=== PATIENT | female | born 1980 | race Caucasian/White ===

== ENCOUNTER → 2021-09-05 15:24 | Outpatient (BNVA) | payer BC, SELFPAY | PROVIDERS: Family Provider Family Medicine; PCP Family Medicine; Referring Provider Family Medicine; Visit Provider Orthopaedic Surgery | DX: M25.552 Pain in left hip (principal) | CPT/HCPCS: 73502 ==

== ENCOUNTER 2021-10-30 13:15 | Outpatient (CLI) | payer BC, SELFPAY ==
--- NOTE | 2021-10-30 13:45 | MR_ITS ---
WS: [id number] MRI LEFT HIP NONCONTRAST TECHNIQUE: Axial T1, axial T2 fat sat, coronal T1, coronal STIR, sagittal T2 fat sat, sagittal T1, an d sagittal T2 fat sat, of both hips. CLINICAL INFORMATION: R22.42 - Localized swelling, mass and lump, left lower limb COMPARISON: MRI pelvis 1 17,018 FINDINGS: Susceptibility artifact from prior postoperative changes resection of the calcified LEFT anterior fem oral mass. No evidence of residual or recurrent lesion. Normal bone marrow signal in the LEFT femoral head and neck. RIGHT femoral head and neck appear normal. Normal bone marrow signal in the ileum and visualized sacrum. Normal bone marrow signal in the LEFT acetabulum and visualized LEFT pubic rami. Large heterogeneous ventral uterine fibroid measuring 4.9 x 6.1 x 3.7 CM is new since 2018. This can be further evaluated with ultrasound. Physiologic ovarian follicles bilaterally. MR/MR hip LT wo con* [id number] IMPRESSION: 1. Previously described LEFT proximal femoral mass has been resected since 201 8. No evidence of recurrent disease. Postoperative changes in this area with mai sceptibility artifact. 2. Normal bone marrow signal in the LEFT femoral head and neck. Normal visuali zed LEFT proximal femur. 3. Normal bone marrow signal in the pelvis and sacrum. Visualized RIGHT femur is normal. 4. Large ventral fundal fibroid measuring 4.9 x 6.1 x 3.7 CM. This is new [facility] e 2017. This can be further evaluated with ultrasound. 5. Incidental bilateral ovarian follicles.
== END 2021-10-30 13:16 | disposition home or self-care (01) ==
LOC: RAD 13:15
PROVIDERS: Family Provider Family Medicine; PCP Family Medicine; Visit Provider Orthopaedic Surgery
DX: R22.42 Localized swelling, mass and lump, left lower limb (principal); D25.9 Leiomyoma of uterus, unspecified
CPT/HCPCS: 73721

== ENCOUNTER → 2021-12-12 14:58 | Outpatient (BNVA) | payer BC, SELFPAY | PROVIDERS: Family Provider Family Medicine; PCP Family Medicine; Visit Provider Orthopaedic Surgery | DX: R20.0 Anesthesia of skin (principal); R20.2 Paresthesia of skin | CPT/HCPCS: 72050 ==

== ENCOUNTER 2024-07-18 11:26 | Emergency (ER) | payer BC, SELFPAY ==
[2024-07-18 11:49] VITALS: BP 135/92; PULSE 89; RESP 14; TEMP 37.2; O2SAT 98
--- NOTE | 2024-07-18 11:52 | CTR_ITS ---
PROCEDURE INFORMATION: Exam: CT Abdomen And Pelvis With Contrast Exam date and time: 07/18/2024 12:37 PM Age: 44 years old Clinical indication: Abdominal pain; Generalized; Prior surgery; Surgery date: 6+ months; Surgery type: Gb, appy tubal; Additional info: Abd pain TECHNIQUE: Imaging protocol: Computed tomography of the abdomen and pelvis with contrast. Radiation optimization: All CT scans at this facility use at least one of these dose optimization techniques: automated exposure control; mA and/or kV adjustment per patient size (includes targeted exams where dose is matched to clinical indication); or iterative reconstruction. Contrast material: OMNI 350; Contrast volume: 100 ml; Contrast route: INTRAVENOUS (IV); COMPARISON: CR XR hip LT 2-3V wo/w pel* [id number] 09/05/2021 3:26 PM RADIATION DOSE METRICS: Total DLP (mGy-cm): 797.9 FINDINGS: Liver: Normal. No mass. Gallbladder and biliary ducts: Cholecystectomy. Nondilated biliary system. Pancreas: Normal. No ductal dilation. Spleen: Normal. No splenomegaly. Adrenal glands: Normal. No mass. Kidneys and ureters: A small subcortical cyst in the anterior lower pole of the right kidney measures 1.8 cm. No imaging follow-up is recommended. Negative for stones. Negative for hydronephrosis. Stomach and bowel: Inflammatory changes focally in the proximal sigmoid colon. Wall thickening. Pericolonic stranding. Prominent diverticulum best seen axial series 3, image 48. Negative for bowel obstruction. Negative for pneumatosis intestinalis. Appendix: No evidence of appendicitis. Intraperitoneal space: Unremarkable. No free air. No significant fluid collection. Vasculature: Unremarkable. No abdominal aortic aneurysm. Lymph nodes: Unremarkable. No enlarged lymph nodes. Urinary bladder: Unremarkable as visualized. Reproductive: Large circumscribed mildly heterogeneous but predominantly enhancing intramural mass of the anterior uterine body measures 8.6 cm x 8.7 cm x 7.1 cm. Negative for endometrial thickening. The enlarged uterus. Unremarkable adnexa. Bones/joints: Unremarkable. No acute fracture. Soft tissues: Unremarkable. CT/CT abdomen pelvis w con* [id number] IMPRESSION: 1. Positive for acute diverticulitis changes in the proximal sigmoid colon. 2. Large circumscribed intramural uterine mass. The appearance is nonspecific but fibroid favored.
--- NOTE | 2024-07-18 12:05 | W.ED.ABDPA2 ---
HPI - Abdominal Pain General: Chief Complaint: Abdominal Pain Stated Complaint: abdominal pain Time Seen by Provider: 07/18/24 11:49 Source: patient Mode of arrival: ambulatory Limitations: no limitations History of Present Illness: 44-year-old female who states that she has been having diffuse abdominal pain for the last 3 days. States has been sharp in nature has had some nausea she denies any vomiting or diarrhea. States the pain is worse with movement rates the pain an 8 out of 10 currently she has had an appendectomy and a cholecystectomy. Denies any fevers. Associated Symptoms: Denies chills, diarrhea, fever(s), nausea and vomiting Related Data Home Medications ?Medication ?Instructions ?Recorded ?Confirmed lisinopril 10 1 tab PO DAILY 09/05/21 07/18/24 mg-hydrochlorothiazide 12.5 mg tablet trazodone 50 mg tablet 50 mg PO DAILY 10/26/21 07/18/24 citalopram 20 mg tablet 20 mg PO DAILY 07/18/24 07/18/24 Previous Rx's ?Medication ?Instructions ?Recorded ciprofloxacin HCl 500 mg tablet 500 mg PO BID #14 tabs 07/18/24 (Cipro) hydrocodone 5 mg-acetaminophen 325 1 tab PO Q6H PRN pain #14 tabs 07/18/24 mg tablet metronidazole 500 mg tablet 500 mg PO Q8H 7 days #21 tabs 07/18/24 ondansetron 4 mg disintegrating 4 mg PO Q6H PRN nausea and 07/18/24 tablet vomiting #14 tabs Allergies Allergy/AdvReac Type Severity Reaction Status Date / Time No Known Allergies Allergy Verified 12/12/21 14:45 Review of Systems Const: Denies: fever(s), chills, body aches or change in appetite ENMT: Denies: throat pain or dental pain Card: Denies: chest pain Resp: Denies: dyspnea GI: Reports: abdominal pain; Denies: nausea, vomiting or diarrhea Musc: Denies: neck pain or back pain Skin/Breast: Denies: rash Neuro: Denies: headache(s) PFSH ED PFSH: Social History Smoking and tobacco/nicotine status: never used tobacco/nicotine Alcohol intake: never Substance/Drug Use: never Physical Exam Const: COMMON NORMALS: no acute distress, patient oriented x3 and healthy appearing HENMT: COMMON NORMALS: normocephalic and atraumatic HEAD & SCALP: normocephalic and atraumatic Eye: COMMON NORMALS: conjunctivae normal CONJUNCTIVA: Yes conjunctivae normal Neck/C-Spine: COMMON NORMALS: full ROM and supple Chest: COMMONS NORMALS: normal inspection of the chest Resp: COMMON NORMALS: normal respiratory effort Cardio: COMMON NORMALS: regular rate, regular rhythm and No murmurs present (Cardio) RATE: regular rate RHYTHM: regular rhythm GI: COMMON NORMALS: Normal to inspection, nondistended, normoactive bowel sounds present, Soft to palpation and no masses PALPATION: Yes Soft to palpation OTHER: diffuse tenderness Extremity: COMMON NORMALS: normal to inspection and full ROM Neuro: COMMON NORMALS: patient oriented x3, moves all extremities and no focal motor deficits Psych: COMMON NORMALS: mental status grossly normal, Normal thought process present and cooperative THOUGHT PROCESS: Normal thought process present Skin: COMMON NORMALS: no rashes or lesions noted and no wounds GENERAL SKIN EXAM: no rashes or lesions noted Course Vital Signs: Vital signs: Vital Signs Temperature 98.9 F 07/18/24 11:49 Pulse Rate 89 07/18/24 11:49 Respiratory Rate 14 07/18/24 11:49 Blood Pressure 135/92 07/18/24 11:49 Pulse Oximetry 98 07/18/24 11:49 MDM - Abdominal Pain Medical Decision Making Patient presents here with abdominal pain she is found have diverticulitis her white count here is 13 she states her pain is much improved I did offer her admission she states she feels improved would like to try oral antibiotics at home but offered that it option as well I feel that she is safe to try oral antibiotics she has no signs of her white count was normal afebrile. Did inform her if her pain worsens or she starts to have a fever she is to return immediately she understands agrees to plan. Medical Records I reviewed the patient's medical records. Lab Data I reviewed the patient's lab results. 07/18/24 11:58 07/18/24 11:58 Labs/Radiology: Radiology Impressions Abdomen/Pelvis CT 07/18/24 11:52 IMPRESSION: 1. Positive for acute diverticulitis changes in the proximal sigmoid colon. 2. Large circumscribed intramural uterine mass. The appearance is nonspecific but fibroid favored. Laboratory Results WBC 13.65 10^3/uL (3.29-11.43) H 07/18/24 11:58 RBC 4.59 10^6/uL (3.85-5.65) 07/18/24 11:58 Hgb 14.20 g/dL (11.27-16.99) 07/18/24 11:58 Hct 43.1 % (36-47) 07/18/24 11:58 MCV 93.9 fl (85-98) 07/18/24 11:58 MCH 30.9 pg (27-33) 07/18/24 11:58 MCHC 32.9 g/dL (30-55) 07/18/24 11:58 RDW 12.8 % (12.1-15.1) 07/18/24 11:58 Plt Count 243 10^3/cmm (157-399) 07/18/24 11:58 MPV 12.1 fL (7.4-10.4) H 07/18/24 11:58 Neut % (Auto) 75.8 % 07/18/24 11:58 Lymph % (Auto) 12.7 % 07/18/24 11:58 [place] % (Auto) 10.0 % 07/18/24 11:58 Eos % (Auto) 0.3 % 07/18/24 11:58 Baso % (Auto) 0.4 % 07/18/24 11:58 Neut # (Auto) 10.35 10^3/uL (1.8-7.7) H 07/18/24 11:58 Lymph # (Auto) 1.7 10^3/uL (0.8-4.8) 07/18/24 11:58 [place] # (Auto) 1.4 10^3/uL (0.2-0.9) H 07/18/24 11:58 Eos # (Auto) 0.0 10^3/uL (0.0-0.8) 07/18/24 11:58 Baso # (Auto) 0.1 10^3/uL (0.0-0.1) 07/18/24 11:58 Nucleated RBC % (auto) 0 % 07/18/24 11:58 Nucleated RBCs # 0.0 /100WBC 07/18/24 11:58 Sodium 137 mmol/L (136-145) 07/18/24 11:58 Potassium 3.7 mmol/L (3.5-5.1) 07/18/24 11:58 Chloride 101 mmol/L (98-107) 07/18/24 11:58 Carbon Dioxide 25 mmol/L (22-29) 07/18/24 11:58 Anion Gap 14.7 (5-19) 07/18/24 11:58 BUN 9 mg/dL (6-20) 07/18/24 11:58 Creatinine 0.8 mg/dL (0.5-0.9) 07/18/24 11:58 GFR Calculation 77.6 mL/min (90-130) L 07/18/24 11:58 Glucose 84 mg/dL (65-115) 07/18/24 11:58 Calculated Osmolality 282 mOsm/kg (285-295) L 07/18/24 11:58 Calcium 8.7 mg/dL (8.5-10.5) 07/18/24 11:58 Total Bilirubin 0.8 mg/dL (0.15-1.2) 07/18/24 11:58 AST 19 U/L (0-32) 07/18/24 11:58 ALT 26 U/L (0-33) 07/18/24 11:58 Alkaline Phosphatase 49 U/L (35-105) 07/18/24 11:58 Total Protein 7.2 g/dL (6.6-8.7) 07/18/24 11:58 Albumin 4.0 g/dL (3.5-5.2) 07/18/24 11:58 Globulin 3.2 g/dL (1.3-4.6) 07/18/24 11:58 Lipase 23 U/L (13-60) 07/18/24 11:58 HCG, Qual Negative (Negative) 07/18/24 11:58 Urine Color [place] (Yellow) A 07/18/24 11:58 Urine Appearance Clear (CLEAR) 07/18/24 11:58 Urine pH 5.5 (5-7) 07/18/24 11:58 Ur Specific [place] 1.008 (1.005-1.030) 07/18/24 11:58 Urine Protein Negative (Negative) 07/18/24 11:58 Urine Glucose (UA) Negative (Normal) 07/18/24 11:58 Urine Ketones Negative (Negative) 07/18/24 11:58 Urine Blood Negative (Negative) 07/18/24 11:58 Urine Nitrate Negative (Negative) 07/18/24 11:58 Urine Bilirubin Negative (Negative) 07/18/24 11:58 Urine Urobilinogen 0.2 mg/dL (Negative) 07/18/24 11:58 Ur Leukocyte Esterase Negative (Negative) 07/18/24 11:58 Urine RBC 0-2 /hpf (0-2) 07/18/24 11:58 Urine WBC 0-5 /hpf (0-5) 07/18/24 11:58 Ur Squamous Epith Cells 0-5 /hpf (0-5) 07/18/24 11:58 Amorphous Sediment Not Reportable 07/18/24 11:58 Urine Bacteria None seen /hpf (NONE) 07/18/24 11:58 Hyaline Casts 0.40 /lpf 07/18/24 11:58 All radiology interpretation(s) finalized by discharge Discharge Plan Discharge Patient Disposition: Home Clinical Impression: Diverticulitis Condition: Stable Prescriptions: New hydrocodone-acetaminophen 5-325 mg tablet 1 tab PO Q6H PRN (Reason: pain) Qty: 14 0RF metronidazole 500 mg tablet 500 mg PO Q8H 7 Days Qty: 21 0RF ciprofloxacin HCl [Cipro] 500 mg tablet 500 mg PO BID Qty: 14 0RF ondansetron 4 mg tablet,disintegrating 4 mg PO Q6H PRN (Reason: nausea and vomiting) Qty: 14 0RF No Action lisinopril-hydrochlorothiazide 10-12.5 mg tablet 1 tab PO DAILY trazodone 50 mg tablet 50 mg PO DAILY citalopram 20 mg tablet 20 mg PO DAILY Discharge Orders: Discharge ED (Routine); Ordered 07/18/24 Ordered By: Reynaldo Driver Referrals: Davon Solano MD [Primary Care Provider] - 4-7 days Discharge Diet: Advance as tolerated Discharge Activity: Resume usual activity Patient Instructions: Diverticulitis (ED), Opioid Safety Print Language: Citizen Of [place] Coding Level of Care Code ED News Copy Editor for Anam Downey
[2024-07-18 12:09] LABS: Basophils # 0.1 10^3/uL (0.0-0.1); Basophils % 0.4 %; Eosinophils % 0.3 %; Hematocrit 43.1 % (36-47); Lymphocytes # 1.7 10^3/uL (0.8-4.8); Lymphocytes % 12.7 %; Mean Corpuscular HGB Conc 32.9 g/dL (30-55); Mean Corpuscular Hemoglobin 30.9 pg (27-33); Mean Corpuscular Volume 93.9 fl (85-98); Mean Platelet Volume 12.1 fL (7.4-10.4); Monocytes # 1.4 10^3/uL (0.2-0.9); Neutrophils # 10.35 10^3/uL (1.8-7.7); Neutrophils % 75.8 %; Nucleated Red Blood Cells % 0 %; Platelet Count 243 10^3/cmm (157-399); Red Blood Count 4.59 10^6/uL (3.85-5.65); Red Cell Distribution Width 12.8 % (12.1-15.1); White Blood Count 13.65 10^3/uL (3.29-11.43)
[2024-07-18] MEDS: ondansetron 2 mg/ML SDV 2 mL 4 MG IVP (12:09)
[2024-07-18] MEDS: morphine 4 mg/mL SDV 1 mL IVP (12:09)
[2024-07-18 12:22] VITALS: PULSE 90; O2SAT 98
[2024-07-18 12:22] LABS: Bilirubin Urine Negative (Negative); Blood Urine Negative (Negative); Glucose Urine UA Negative (Normal); Ketones Urine Negative (Negative); Leukocyte Esterase Urine Negative (Negative); Nitrate Urine Negative (Negative); Protein Urine Negative (Negative); Specific Gravity, Urine 1.008 (1.005-1.030); Urine Appearance Clear (CLEAR); Urobilinogen Urine 0.2 mg/dL (Negative); pH Urine 5.5 (5-7)
[2024-07-18 12:24] LABS: HCG Qualitative Urine. Negative (Negative)
[2024-07-18 12:26] LABS: Alanine Aminotransferase 26 U/L (0-33); Alkaline Phosphatase 49 U/L (35-105); Blood Urea Nitrogen 9 mg/dL (6-20); Calcium 8.7 mg/dL (8.5-10.5); Carbon Dioxide 25 mmol/L (22-29); Chloride 101 mmol/L (98-107); Globulin 3.2 g/dL (1.3-4.6); Glomerular Filtration Rate 77.6 mL/min (90-130); Glucose 84 mg/dL (65-115); Lipase 23 U/L (13-60); Osmolality Calculated 282 mOsm/kg (285-295); Sodium 137 mmol/L (136-145); Total Bilirubin 0.8 mg/dL (0.15-1.2); Total Protein 7.2 g/dL (6.6-8.7)
[2024-07-18 12:27] LABS: Add Urine Microscopic? YES; Bacteria Urine None Seen /hpf; RBC Urine 0-2 /hpf (0-2); Squamous Epithelial Cell Urine 0-5 /hpf (0-5); WBC Urine 0-5 /hpf (0-5)
[2024-07-18 12:29] LABS: Anion Gap 14.7 (5-19); Aspartate Amino Transferase 19 U/L (0-32); Potassium 3.7 mmol/L (3.5-5.1)
[2024-07-18 12:30] LABS: Urine Color Orange (Yellow)
[2024-07-18] MEDS: iohexol 350 mg/mL 500 mL Btl (per mL) IV (12:41)
[2024-07-18 13:36] VITALS: BP 130/76; PULSE 90; O2SAT 98
== END 2024-07-18 13:40 | disposition home or self-care (01) ==
PROVIDERS: Emergency Provider Emergency Medicine; PCP Family Medicine
DX: K57.92 Diverticulitis of intestine, part unspecified, without perforation or abscess without bleeding (principal)
CPT/HCPCS: 74177; 80053; 81001; 81025; 83690; 85025; 96374; 96375; 99285; J2270; J2405

== ENCOUNTER 2024-07-18 22:32 | Emergency (ER) | payer BC, SELFPAY ==
[2024-07-18 22:41] VITALS: BP 112/75; PULSE 93; RESP 18; TEMP 37; O2SAT 93
[2024-07-19 00:02] LABS: Bilirubin Urine Negative (Negative); Blood Urine 2+ (Negative); Glucose Urine UA Negative (Normal); Ketones Urine 2+ (Negative); Leukocyte Esterase Urine Negative (Negative); Nitrate Urine Negative (Negative); Protein Urine Trace (Negative); Urine Appearance Clear (CLEAR); Urine Color Yellow (Yellow)
[2024-07-19 00:07] LABS: Add Urine Microscopic? YES; Bacteria Urine 1+ /hpf; Hyaline Casts Urine 1.65 /lpf; WBC Urine 0-5 /hpf (0-5)
[2024-07-19 00:12] LABS: Specific Gravity, Urine 1.037 (1.005-1.030)
--- NOTE | 2024-07-19 00:27 | W.ED.ABDPA2 ---
HPI - Abdominal Pain General: Chief Complaint: Abdominal Pain Stated Complaint: divuticullitis worse Time Seen by Provider: 07/18/24 23:29 History of Present Illness: Patient presents for follow-up evaluation of recently diagnosed diverticulitis with new onset fever and persistent pain. Reports developing fever during the night, which was not present during previous visit. Pain is described as diffuse abdominal discomfort that significantly worsens with movement, rated as 8/10 when changing positions. Patient was instructed during previous visit to return if pain worsened or fever developed. Currently on oral Ciprofloxacin and Metronidazole (Flagyl) antibiotic therapy. Reports significant nausea with pain medication (hydrocodone). Pain is not adequately controlled with current oral pain medications, as patient continues to experience severe pain even after taking prescribed medications. Related Data Home Medications ?Medication ?Instructions ?Recorded ?Confirmed lisinopril 10 1 tab PO DAILY 09/05/21 07/18/24 mg-hydrochlorothiazide 12.5 mg tablet trazodone 50 mg tablet 50 mg PO DAILY 10/26/21 07/18/24 citalopram 20 mg tablet 20 mg PO DAILY 07/18/24 07/18/24 Previous Rx's ?Medication ?Instructions ?Recorded ciprofloxacin HCl 500 mg tablet 500 mg PO BID #14 tabs 07/18/24 (Cipro) hydrocodone 5 mg-acetaminophen 325 1 tab PO Q6H PRN pain #14 tabs 07/18/24 mg tablet metronidazole 500 mg tablet 500 mg PO Q8H 7 days #21 tabs 07/18/24 ondansetron 4 mg disintegrating 4 mg PO Q6H PRN nausea and 07/18/24 tablet vomiting #14 tabs Allergies Allergy/AdvReac Type Severity Reaction Status Date / Time No Known Allergies Allergy Verified 07/18/24 22:47 [facility] ED PFSH: Social History Smoking and tobacco/nicotine status: never used tobacco/nicotine Alcohol intake: never Substance/Drug Use: never Physical Exam Const: COMMON NORMALS: no acute distress, patient oriented x3, alert and well nourished HENMT: COMMON NORMALS: normocephalic HEAD & SCALP: normocephalic Eye: COMMON NORMALS: Equal, round and reactive pupils present, EOMs intact bilaterally and conjunctivae normal CONJUNCTIVA: Yes conjunctivae normal PUPIL: Yes Equal, round and reactive pupils present Neck/C-Spine: COMMON NORMALS: full ROM, no lymphadenopathy, supple, no meningeal signs, no JVD and Thyroid normal THYROID: Thyroid normal Chest: COMMONS NORMALS: normal inspection of the chest and normal palpation of entire chest wall Resp: COMMON NORMALS: normal respiratory effort, No retractions, No use of accessory muscles, clear to auscultation bilaterally and percussion normal AUSCULTATION: clear to auscultation bilaterally PERCUSSION: percussion normal Cardio: COMMON NORMALS: no JVD GI: OTHER: Pain to palpation in lower abdomen Extremity: COMMON NORMALS: normal to inspection, full ROM, capillary refill normal, no joint enlargement, no clubbing, cyanosis or edema, no calf tenderness and no pedal edema Neuro: COMMON NORMALS: patient oriented x3 SENSORIUM/ORIENTATION: Yes alert MENINGEAL SIGNS: Yes no meningeal signs Skin: COMMON NORMALS: no rashes or lesions noted, turgor normal and no jaundice GENERAL SKIN EXAM: no rashes or lesions noted and turgor normal Course Vital Signs: Vital signs: Vital Signs Temperature 98.6 F 07/18/24 22:41 Pulse Rate 93 07/18/24 22:41 Respiratory Rate 18 07/18/24 22:41 Blood Pressure 112/75 07/18/24 22:41 Pulse Oximetry 93 07/18/24 22:41 Oxygen Delivery Me thod Room Air 07/18/24 22:41 MDM - Abdominal Pain Medical Decision Making 1. Acute Diverticulitis: - Current presentation consistent with expected course of illness within first 24-48 hours - No clear signs of perforation or other acute complications - Continue current antibiotic regimen with Ciprofloxacin and Metronidazole - May add ibuprofen for additional pain control as no contraindications identified - Clear liquid diet recommended for next few days - Maintain adequate hydration with electrolyte-containing fluids 2. Pain Management: - Administered parenteral pain medication in ED for acute relief - Continue oral hydrocodone as prescribed - Added recommendation for ibuprofen as adjunct therapy 3. Follow-up Plan: - Schedule follow-up with PCP (Dr. Solano) - Colonoscopy recommended given young age of diverticulitis presentation - Return precautions reviewed: persistent fever beyond 48 hours, significant worsening of pain, inability to tolerate oral medications - Activity as tolerated, though limited by pain Differential Diagnosis Likely abdominal pain and diverticulitis (I do not think patient has perforation based on presentation) Lab Data Labs/Radiology: Laboratory Results Urine Color Yellow (Yellow) 07/18/24 23:40 Urine Appearance Clear (CLEAR) 07/18/24 23:40 Urine pH 5.0 (5-7) 07/18/24 23:40 Ur Specific [place] 1.037 (1.005-1.030) H 07/18/24 23:40 Urine Protein Trace (Negative) A 07/18/24 23:40 Urine Glucose (UA) Negative (Normal) 07/18/24 23:40 Urine Ketones 2+ (Negative) H 07/18/24 23:40 Urine Blood 2+ (Negative) A 07/18/24 23:40 Urine Nitrate Negative (Negative) 07/18/24 23:40 Urine Bilirubin Negative (Negative) 07/18/24 23:40 Urine Urobilinogen 1.0 mg/dL (Negative) 07/18/24 23:40 Ur Leukocyte Esterase Negative (Negative) 07/18/24 23:40 Urine RBC 3-5 /hpf (0-2) 07/18/24 23:40 Urine WBC 0-5 /hpf (0-5) 07/18/24 23:40 Ur Squamous Epith Cells 6-10 /hpf (0-5) 07/18/24 23:40 Amorphous Sediment Not Reportable 07/18/24 23:40 Urine Bacteria 1+ /hpf (NONE) H 07/18/24 23:40 Hyaline Casts 1.65 /lpf 07/18/24 23:40 All radiology interpretation(s) finalized by discharge Discharge Plan Discharge Patient Disposition: Home Clinical Impression: Diverticulitis Condition: Stable Prescriptions: No Action lisinopril-hydrochlorothiazide 10-12.5 mg tablet 1 tab PO DAILY trazodone 50 mg tablet 50 mg PO DAILY citalopram 20 mg tablet 20 mg PO DAILY hydrocodone-acetaminophen 5-325 mg tablet 1 tab PO Q6H PRN (Reason: pain) Qty: 14 0RF metronidazole 500 mg tablet 500 mg PO Q8H 7 Days Qty: 21 0RF ciprofloxacin HCl [Cipro] 500 mg tablet 500 mg PO BID Qty: 14 0RF ondansetron 4 mg tablet,disintegrating 4 mg PO Q6H PRN (Reason: nausea and vomiting) Qty: 14 0RF Discharge Orders: Discharge ED (Routine); Ordered 07/19/24 Ordered By: Bruce Hoffman Referrals: Davon Solano MD [Primary Care Provider] - Discharge Diet: Full LIquid Discharge Activity: Limit activity as instructed Patient Instructions: Opioid Safety, Pain Management Activity Restrictions/Additional Instructions: 1. Take Rx as directed +/- Ibuprofen 2. Follow up with PCP on Saturday for recheck 3. Return for new / worsening symptoms as discussed Print Language: [place] Coding Level of Care Code ED Inventory Planner for Anam Downey
[2024-07-19 00:29] VITALS: BP 163/59; PULSE 71; RESP 16; O2SAT 95
[2024-07-19 00:30] VITALS: BP 106/68; PULSE 76; RESP 20; O2SAT 95
[2024-07-19] MEDS: HYDROmorphone 0.5 MG/0.5 ML INJ 1 MG (00:34)
[2024-07-19 01:08] VITALS: BP 115/75; PULSE 80; RESP 16; O2SAT 94
== END 2024-07-19 01:09 | disposition home or self-care (01) ==
PROVIDERS: Emergency Provider Family Medicine; PCP Family Medicine
DX: K57.92 Diverticulitis of intestine, part unspecified, without perforation or abscess without bleeding (principal)
CPT/HCPCS: 81001; 99283; J1171

== ENCOUNTER 2024-11-10 09:52 | Day surgery (SDC) | payer BC, SELFPAY ==
[2024-11-10] VITALS (10 sets, daily range): BP systolic 84–133; BP diastolic 43–93; PULSE 60–79; RESP 10–18; TEMP 36.3–37.1; O2SAT 93–100; BMI 33.6
--- NOTE | 2024-11-10 10:08 | W.PM.OPSUD ---
Surgery/Procedure H&P Update DATE OF PROCEDURE: November 10, 2024 DATE H&P PERFORMED: 10/21/24 H&P UPDATE INFORMATION: I have reviewed H&P completed within last 30 days, I have examined patient prior to procedure and No changes to prior documentation PREOP DIAGNOSIS: abnormal uterine bleeding PLANNED PROCEDURE: Operation Date: 11/10/24 10:40 Proposed Procedures p Hysteroscopy w/ Endometrial Sampling [id number], N93.9(Not Applicable) - Huan Mejia MD s POSSIBLE Endometrial Poylpectomy(Not Applicable) - Huan Mejia MD
[2024-11-10 10:20] LABS: OR HCG Qualitative Urine Negative (Negative)
--- NOTE | 2024-11-10 10:45 | ANES.PREANE2 ---
Pre-Anesthetic Assessment Height/Weight: Height 1.6 m Weight 86.183 kg Temp Pulse Resp BP Pulse Ox O2 Del Method 98.8 F 73 18 133/93 95 Room Air 11/10/24 10:12 11/10/24 10:12 11/10/24 10:12 11/10/24 10:12 11/10/24 10:12 11/10/24 10:12 Preop Diagnosis: abnormal uterine bleeding Operation Date: 11/10/24 10:40 Proposed Procedures p Hysteroscopy w/ Endometrial Sampling [id number], N93.9(Not Applicable) - Huan Mejia MD s POSSIBLE Endometrial Poylpectomy(Not Applicable) - Huan Mejia MD Familial anesthetic complications: None Was Beta Luanne taken within 24 hours: N/A Was Clonidine taken within 24 hours: N/A Last intake: Intake Last Liquid Date 11/09/24 Last Liquid Time 10:30 Last Solid Date 11/09/24 Last Solid Time 20:30 Social No alcohol and No tobacco Exam alert, oriented x 3, clear to auscultation bilaterally and regular rate & rhythm Airway Mallampati: Class II Dentition: full CV/HEM Hypertension Metabolic Morbid Obesity Anesthetic Plan ASA status: 2 Anesthesia: General Risk of > 500 ml blood loss (7ml/kg in children): No Medications/Allergies Home Medications ?Medication ?Instructions ?Recorded ?Confirmed ?Last Taken ?Type lisinopril 10 1 tab PO DAILY 09/05/21 11/10/24 11/09/24 History mg-hydrochlorothiazide 12.5 mg tablet trazodone 50 mg tablet 50 mg PO DAILY 10/26/21 11/10/24 11/09/24 History ciprofloxacin HCl 500 mg tablet 500 mg PO BID #14 tabs 07/18/24 11/10/24 11/09/24 Rx (Cipro) citalopram 20 mg tablet (Celexa) 20 mg PO DAILY 07/18/24 11/10/24 11/09/24 History Allergies Allergy/AdvReac Type Severity Reaction Status Date / Time No Known Allergies Allergy Verified 11/10/24 10:07 Current Medications Generic Name Dose Route Start Last Admin Trade Name Freq PRN Reason Stop Dose Admin Sodium Chloride 1,000 mls @ 30 mls/hr 11/10/24 10:00 11/10/24 10:30 Sodium Chloride 0.9% IV 11/11/24 09:59 30 mls/hr .Q24H BROOKS Administration PFSH Anesthesia Family History Father Heart disease Hypertension Hyperlipidemia Diabetes Stroke Mother Heart disease Hypertension Diabetes Grandmother Breast cancer Grandfather Heart disease Diabetes Social History Smoking and tobacco/nicotine status: never used tobacco/nicotine Alcohol intake: never Substance/Drug Use: never
--- NOTE | 2024-11-10 11:25 | P.OP_ITS ---
Operative Report Date of procedure: November 10, 2024 Pre-op diagnosis: abnormal uterine bleeding Post-op diagnosis: same Post-op findings: Uterus sounded to 14 cm normal endometrial cavity No polyps / fibroids small amount of endometrial tissue Procedure done: hysteroscopy Curettage of uterus Specimens removed/disposition: endometrial curettings, sent to pathology Surgeon: Huan Mejia MD Anesthesia: MAC Estimated blood loss (mL): 0 Complications: none Findings: Uterus sounded to 14 cm normal endometrial cavity No polyps / fibroids small amount of endometrial tissue Condition: stable Disposition: PACU Brief History: 44 y.o. with abnormal uterine bleeding Procedure: Informed consent signed. Patient was taken to the operating room. Anesthesia was induced. Patient was placed in dorsolithotomy position, prepped and draped for hysteroscopy. A bivalve speculum was placed in the vagina. The anterior lip of the cervix was grasped with a sharp-toothed tenaculum. The cervix was serially dilated with Hegar dilators. . A hysteroscope was placed into the endometrial cavity. The endometrial cavity was seen to be normal. There were no polyps or fibroids. T here was a small amount of endometrial tissue. The hysteroscope was then removed. Endometrial curettage was done with a sharp curette. Endometrial tissue was sent to pathology. The sharp-toothed tenaculum was removed. There was no bleeding from the endometrial cavity or cervix. The patient was then placed supine and awakened and taken to the PACU. Postop condition: stable EBL: none Sponge and instruments counts were normal x 2 Complications: none
--- NOTE | 2024-11-10 12:45 | ANE.PACU2 ---
Inpatient post-anesthesia follow up: Vital signs: Temperature 97.3 F Pulse Rate 60 Respiratory Rate 16 Blood Pressure 117/55 Pulse Oximetry 99 Oxygen Delivery Me thod Room Air Oxygen Flow Rate 8 Fraction of Inspir ed Oxygen
== END 2024-11-10 12:44 | disposition home or self-care (01) ==
PROVIDERS: PCP Family Medicine; Visit Provider Obstetrics & Gynecology
PROC: 0UJD8ZZ Inspection of Uterus and Cervix, Via Natural or Artificial Opening Endoscopic (ICD-10-PCS; CPT 58555; principal; 2024-11-10 10:30)
DX: N85.8 Other specified noninflammatory disorders of uterus (principal); N93.9 Abnormal uterine and vaginal bleeding, unspecified; I10 Essential (primary) hypertension; E66.01 Morbid (severe) obesity due to excess calories; Z68.33 Body mass index [BMI] 33.0-33.9, adult
CPT/HCPCS: 58558; 81025; 88305; J0131; J1100; J1200; J1885; J2250; J2405; J2704; J3010; J7030; J9999

== ENCOUNTER → 2025-02-03 13:44 | Outpatient (BNVA) | payer BC, SELFPAY | PROVIDERS: PCP Family Medicine; Visit Provider Family Medicine | DX: D25.9 Leiomyoma of uterus, unspecified (principal); Z01.818 Encounter for other preprocedural examination; I10 Essential (primary) hypertension | CPT/HCPCS: 80048; 85025 ==

== ENCOUNTER 2025-03-02 10:06 | Inpatient (IN) | payer BC, SELFPAY ==
--- NOTE | 2025-02-23 02:46 | P.HP_ITS ---
Providers/Chief Complaint Admitting Physician: Huan Mejia MD Primary ALLERGY AND IMMUNOLOGY SPECIALIST: Huan Mejia MD Primary Care Provider: Davon Solano MD Chief Complaint: menometrorrhagia HPI ALLERGY AND IMMUNOLOGY SPECIALIST History of Present Illness Shelia Cedillo is a 44 year old female A3 h/o BTL h/o menometrorrhagia h/o uterine fibroids now scheduled for total abdominal hysterectomy h/o hysteroscopy, endometrial sampling November 10, 2024 pathology: benign endometrium benign endo and ecto-cervix patient want hysterectomy for chronic menometrorrhagia and uterine fibroids Medications/Allergies Home Medications ?Medication ?Instructions ?Recorded ?Confirmed ?Last Taken ?Type lisinopril 10 1 tab PO DAILY 09/05/2105/3011/09/24 History mg-hydrochlorothiazide 12.5 mg tablet trazodone 50 mg tablet 50 mg PO DAILY 10/26/2105/3011/09/24 History citalopram 20 mg tablet (Celexa) 20 mg PO DAILY 02/03/25 11/09/24 History Allergies Allergy/AdvReac Type Severity Reaction Status Date / Time No Known Allergies Allergy Verified 11/19/24 08:16 PFSH ALLERGY AND IMMUNOLOGY SPECIALIST PFSH: Family History Father Heart disease Hypertension Hyperlipidemia Diabetes Stroke Mother Heart disease Hypertension Diabetes Grandmother Breast cancer Grandfather Heart disease Diabetes Social History Smoking and tobacco/nicotine status: never used tobacco/nicotine Alcohol intake: never Substance/Drug Use: never Physical Exam Narrative: Weight 195 lbs; 5?3? HEENT: normal Lungs: clear Cor: RRR Abd: soft, nontender Ext: normal Pelvic sono 08-24-24 uterus 16.2 x 9.2 x 12 cm Fundal fibroid 9.3 x 6.9 x 8.5 cm Endometrium 9 mm Normal ovaries Results Labs OB ([facility]): Hct, (36-47) 43.1 % 02/03/25 Hgb, (11.27-16.99) 14.70 g/dL 02/03/25 Plt Count, (157-399) 278 10^3/cmm 02/03/25 HCG, Qual, (Negative) Negative 07/18/24 A&P Assessment and plan 1. Abnormal uterine bleeding: Abnormal uterine bleeding, chronic menometrorrhagia Uterine fibroid 9-10 cm patient wants hysterectomy procedure and risks explained to patient risks include, but not limited to, infection; bleeding; injury to internal organs, such as bladder, bowel, blood vessels; anesthesia; blood transfusions patient understands and wants to proceed PDMP PDMP Reviewed: Not Reviewed Attestations Medical Necessity Statement*: patient with chronic menometrorrhagia and large uterine fibroid, scheduled for hysterectomy Coding Level of Care Code Acute Code for Chg Fwd Diagnoses Abnormal uterine bleeding N93.9
[2025-03-02] VITALS (17 sets, daily range): BP systolic 86–142; BP diastolic 37–99; PULSE 89–105; RESP 16–18; TEMP 36.6–37.4; O2SAT 94–100; BMI 34.5
[2025-03-02 06:07] LABS: OR HCG Qualitative Urine Negative (Negative)
--- NOTE | 2025-03-02 06:34 | ANES.PREANE2 ---
Pre-Anesthetic Assessment Height/Weight: Height 1.6 m Weight 88.451 kg Temp Pulse Resp BP Pulse Ox O2 Del Method 99.3 F 94 18 142/99 95 Room Air 03/02/25 06:09 03/02/25 06:09 03/02/25 06:09 03/02/25 06:28 03/02/25 06:09 03/02/25 06:09 Preop Diagnosis: menometrorrhagia, uterine fibroid Operation Date: 03/02/25 07:00 Proposed Procedures p Total Abdominal Hysterectomy 84860 N93.9(Not Applicable) - Huan Mejia MD Familial anesthetic complications: None Was Beta Luanne taken within 24 hours: N/A Was Clonidine taken within 24 hours: N/A Last intake: Intake Last Liquid Date 03/01/25 Last Liquid Time 20:00 Last Solid Date 03/01/25 Last Solid Time 20:00 Social No alcohol and No tobacco Exam alert, oriented x 3, clear to auscultation bilaterally and regular rate & rhythm Airway Mallampati: Class I Dentition: full CV/HEM Hypertension Anesthetic Plan ASA status: 2 Anesthesia: General Risk of > 500 ml blood loss (7ml/kg in children): No Medications/Allergies Home Medications ?Medication ?Instructions ?Recorded ?Confirmed ?Last Taken ?Type lisinopril 10 1 tab PO DAILY 09/05/21 03/01/25 03/01/25 21:00 History mg-hydrochlorothiazide 12.5 mg tablet trazodone 50 mg tablet 50 mg PO DAILY 10/26/21 03/01/25 03/01/25 21:00 History citalopram 20 mg tablet (Celexa) 20 mg PO DAILY 07/18/24 03/01/25 03/01/25 21:00 History Allergies Allergy/AdvReac Type Severity Reaction Status Date / Time No Known Allergies Allergy Verified 11/19/24 08:16 Current Medications Generic Name Dose Route Start Last Admin Trade Name Freq PRN Reason Stop Dose Admin Sodium Chloride 1,000 mls @ 30 mls/hr 03/02/25 06:00 03/02/25 06:25 Sodium Chloride 0.9% IV 03/03/25 05:59 30 mls/hr .Q24H BROOKS Administration PFSH Anesthesia Family History Father Heart disease Hypertension Hyperlipidemia Diabetes Stroke Mother Heart disease Hypertension Diabetes Grandmother Breast cancer Grandfather Heart disease Diabetes Social History Smoking and tobacco/nicotine status: never used tobacco/nicotine Alcohol intake: never Substance/Drug Use: never Female Reproductive History Date of last menstrual period: 02/26/25
--- NOTE | 2025-03-02 06:51 | W.PM.OPSUD ---
Surgery/Procedure H&P Update DATE OF PROCEDURE: March 02, 2025 DATE H&P PERFORMED: 02/26/25 H&P UPDATE INFORMATION: I have reviewed H&P completed within last 30 days, I have examined patient prior to procedure and No changes to prior documentation PREOP DIAGNOSIS: menometrorrhagia, uterine fibroid PLANNED PROCEDURE: Operation Date: 03/02/25 07:00 Proposed Procedures p Total Abdominal Hysterectomy 03572 N93.9(Not Applicable) - Huan Mejia MD
[2025-03-02] MEDS: metroNIDAZOLE IV 500 MG/100 ML PREMIX 100 MG IV (07:01)
[2025-03-02] MEDS: ceFAZolin 2,000 mg SDV 2000 MG IVP (07:15)
[2025-03-02] MEDS: BUPivacaine 0.5% INJ 30 mL INJECTION (10:00)
[2025-03-02] MEDS: BUPIVACAINE LIPOSOME/PF 266 MG, BUPivacaine 0.25% 30 ML in sodium chloride 0.9% 50 ML INJECTION (10:00)
--- NOTE | 2025-03-02 10:15 | PM.OP2 ---
Brief Operative Note Date of procedure: 03/02/25 Pre-op diagnosis: menorrhagia, dysmenorrhea Post-op diagnosis: same Procedure Done: Total abdominal hysterectomy, bilateral salpingectomy Surgeon: Huan Mejia Estimated blood loss (mL): 1,000 Complications: none Post-op Plan: floor
--- NOTE | 2025-03-02 10:30 | PM.OP ---
Operative Report Date of procedure: March 02, 2025 Pre-op diagnosis: menorrhagia dysmenorrhea Post-op diagnosis: same Post-op findings: uterus markedly enlarged, approximately 16-wk size Normal fallopian tubes Normal ovaries Right ovary with 4 cm clear ovarian cyst Normal and intact bladder Procedure done: Total abdominal hysterectomy Bilateral salpingectomy Right ovarian cystectomy Implants: none Specimens removed/disposition: uterus fallopian tubes right ovarian cyst Surgeon: Huan Mejia MD Anesthesia: General Estimated blood loss (mL): 1,000 Complications: none Findings: see above Condition: stable Disposition: PACU Brief History: 44 y.o. with chronic menorrhagia and severe dysmenorrhea Procedure: The patient was taken to the operating room and placed supine on the table. General endotracheal anesthesia was induced. The abdomen was prepped and draped in the usual sterile fashion. A encinas catheter was placed which drained clear urine. A pfannenstiel incision was made and carried down through skin and subcutaneous tissue and fascia. The fascia was sharply incised. The rectus muscles were and the abdomen was entered bluntly in the midline. The pelvic contents were visualized and examined. An Nikhil-O retractor was placed. The bowels were packed out of the way. The Ligasure device was used throughout for vessel sealing and cutting. The hysterectomy was begun by dividing and ligating the round ligaments bilaterally. The infundibulopelvic ligaments were divided and skeletonized bilaterally. The ovaries were preserved by dividing the uterus from the uteroovarian ligaments. The vesicouterine peritoneal fold was incised in a transverse curvilinear fashion and sharply dissected downward mobilizing the bladder off the lower uterine segment. The uterine vessels were skeletonized and bilaterally divided and ligated. The procedure was carried down on both sides of the uterus until the cardinal uterosacral ligament was reached. The cervix was then incised. The vaginal cuff was identified and the mucosa was from the cervix. In this fashion, the uterus was removed leaving the vaginal cuff. The vaginal cuff was identified and the mucosa was sewn with O-Vicryl. A 4 cm right ovarian cyst was removed and sent to pathology. Bilateral fallopian tubes were also removed with the Ligasure device. The pelvis was inspected and irrigated. Bleeding from the posterior cuff region was controlled using suture ligatures. There was no further bleeding. The abdominal packs were removed as was the retractor. The fascia was then closed with a continuous stitch of O-Vicryl. The subcutaneous tissue was irrigated and inspected for hemostasis. The skin was then reapproximated using Insorb absorbable subcuticular skin sanjay. The patient was then placed supine, extubated, and taken to the recovery room. Postoperative condition: stable EBL: 1000 cc Complications: none Sponge, needle, instruments counts were correct x two.
--- NOTE | 2025-03-02 10:55 | ANE.PACU2 ---
Inpatient post-anesthesia follow up: Airway intact: Yes Vital signs: Temperature 98.3 F Pulse Rate 95 Respiratory Rate 16 Blood Pressure 92/58 Pulse Oximetry 100 Oxygen Delivery Me thod Room Air Oxygen Flow Rate Fraction of Inspir ed Oxygen Hydration adequate: Yes Nausea and vomiting: No Pain level: 1 Mental status: Baseline
[2025-03-02] MEDS: HYDROcodone-acetaminophen 5-325 mg Tablet PO (11:15)
[2025-03-02] MEDS: morphine 4 mg/mL SDV 1 mL IVP (13:41)
[2025-03-02] MEDS: ondansetron 2 mg/ML SDV 2 mL 4 MG IVP (13:53)
[2025-03-03 05:30] VITALS: BP 149/104; PULSE 102; RESP 18; TEMP 36.8; O2SAT 95
[2025-03-03 06:14] LABS: Hematocrit 29.9 % (36-47); Hemoglobin 10.20 g/dL (11.27-16.99); Mean Corpuscular HGB Conc 34.1 g/dL (30-55); Mean Corpuscular Hemoglobin 31.7 pg (27-33); Mean Corpuscular Volume 92.9 fl (85-98); Platelet Count 225 10^3/cmm (157-399); Red Blood Count 3.22 10^6/uL (3.85-5.65); White Blood Count 15.91 10^3/uL (3.29-11.43)
[2025-03-03 09:03] VITALS: BP 137/96; PULSE 89; RESP 17; TEMP 36.8; O2SAT 97
--- OUTSIDE RECORDS SUMMARY | 2025-03-03 12:02 | XMS_ITS | Clinical Summary ---
Author Organization [a][employer] [facility] Address [address] Attn: [place] [address] Care Team Providers Care Home Health Cna Name Role Phone Unavailable Primary Care Provider Unavailabl e Social History Tobacco Use Types Packs/Day Years Used Date Smoking Tobacco: Never Assessed Comments Unknown Sex and Gender Information Value Date Recorded Sex Assigned at Not on file Legal Sex Female 6:04 AM BOTTLE GAU[employer] Gender Identity Not on file Sexual Orientation Not on file Plan of Treatment Health Maintenance Due Date Last Done Comments DTAP/TDAP/TD VACCINES (1 - Tdap) 1998 HEPATITIS B VACCINES (1 of 3 - 19+ 3-dose series) 04/06 HPV/Cotest (21-29) 2000 HPV VACCINES (1 - 3-dose SCDM series) 2006 CERVICAL CANCER SCREENING 2009 HPV/Cotest (30-65) 2009 PAP SMEAR 2009 BREAST CANCER SCREENING 2019 COLORECTAL SCREENING 2024 Colorectal Cancer Screening 2024 FIT-DNA Q 3 years 2024 FIT/FOBT Q 1 year 2024 Flex Sig/CT Colonography Q 5 years 2024 INFLUENZA VACCINE (#1) 2024
--- OUTSIDE RECORDS SUMMARY | 2025-03-03 12:02 | XMS_ITS | Data Portability ---
Author Organization [facility], [facility], [facility] Address [address] [address] Care Team Providers Care Medical File Clerk Name Role Phone NAIF SOLANO Primary Care Provider Unavailabl e Assessment No assessment recorded. Plan of Treatment Reminders Order Date Submit Date Provider Last Modified By Organization Details Last Modified Time Details Appointments RECHECK 15 2024 03:30P Latoya Solano MD Not available Not available Not available Lab None recorded. Referral gastroent erologist referral 2024 025 [email or web address] Tae Alvarado MD, [address] [facility] [address], [address], 08/10/2024 12:36:37 Procedures None recorded. Surgeries None recorded. Imaging US, pelvis, complete - 75943 & 25906 Transvagi nal 2024 025 [facility], [address] [place], [address], 08/25/2024 08:34:15 Medication Orders cefdinir 300 mg capsule 2024 025 [facility] #[id number], [address] [facility] 2, [place], [address], 07/18/2024 12:02:43 Patient TargetsNo targets recorded. Patient InstructionsNo instructions recorded. 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 for Diverticulitis of colon Referring Physician: Naif Solano, Family Medicine, Encounter Date: 07/27/2024 Results Created Date Observation Date Name Description Value Unit Range Abnormal Flag Note LastModifiedBy Organization Detail LastModifiedTime 05/25/19 25 05/25/2024 CBC WBC 9.4 x10 4.0-10 .5 Not Available [facility] [address] [facility] 1, [place], [address], 05/25/2024 17:58:20 05/25/19 25 05/25/2024 CBC RBC 4.86 x10 3.50-5 .50 Not Available [facility] [address] [facility] 1, [place], [address], 05/25/2024 17:58:20 05/25/19 25 05/25/2024 CBC HGB 15.3 g/dL 12.0-1 6.0 Not Available [facility] [address] [facility], [place], [address], 05/25/2024 17:58:20 05/25/19 25 05/25/2024 CBC HCT 43.9 % 37.0-4 7.0 Not Available [facility] [address] [facility], [place], [address], 05/25/2024 17:58:20 05/25/19 25 05/25/2024 CBC MCV 90.4 fL 80.0-9 9.9 Not Available [facility] [address] [facility], [place], [address], 05/25/2024 17:58:20 05/25/19 25 05/25/2024 CBC MCH 31.4 pg 27.0-3 2.0 Not Available [facility] [address] [facility], [place], [address], 05/25/2024 17:58:20 05/25/19 25 05/25/2024 CBC MCHC 34.8 g/dL 32.0-3 6.0 Not Available [facility] [address] [facility] 1, [place], [address], 05/25/2024 17:58:20 05/25/19 25 05/25/2024 CBC RDW 13.8 % 11.5-1 4.5 Not Available [facility] [address] [facility] 1, [place], [address], 05/25/2024 17:58:20 05/25/19 25 05/25/2024 CBC plt 216.6 x10 140.0- 451.0 Not Available [facility] [address] [facility] 1, [place], [address], 05/25/2024 17:58:20 05/25/19 25 05/25/2024 CBC lymphocytes % 29.4 % 20.0-5 0.0 Not Available [facility] [address] [facility] 1, [place], [address], 05/25/2024 17:58:20 05/25/19 25 05/25/2024 CBC granulcytes % 58.8 % 30.0-7 0.0 Not Available [facility] [address] [facility] 1, [place], [address], 05/25/2024 17:58:20 05/25/19 25 05/25/2024 CBC monocytes % 9.2 % 2.0-16 .0 Not Available [facility] [address] [address], [place], [address], 05/25/2024 17:58:20 05/25/19 25 05/25/2024 CBC granulcytes# 5.5 x10 Not Mimi ilable [facility] [address] [address], [place], [address], 05/25/2024 17:58:20 05/25/19 25 05/25/2024 CBC lymphocytes # 2.8 x10 Not Available [facility] [address] [facility] 1, [place], [address], 05/25/2024 17:58:20 05/25/19 25 05/25/2024 CBC monocytes # 0.9 x10 Not [facility] [address] [facility] 1, [place], [address], 05/25/2024 17:58:20 05/25/19 25 05/25/2024 CMP (MALE ) glucose 99.0 mg/dL 60.0-9 9.0 Not Available [facility] 5 [facility] 1, [place], [address], 05/25/2024 18:12:20 05/25/19 25 05/25/2024 CMP (MALE ) BUN (blood urea nitrogen) 12.0 mg/dL 10.0-2 6.0 Not Available [facility] 5 [facility] 1, [place], [address], 05/25/2024 18:12:20 05/25/19 25 05/25/2024 CMP (MALE ) creatinine (serum) 0.8 mg/dL 0.4-1. 5 Not Available [facility] [address] [address], [place], [address], 05/25/2024 18:12:20 05/25/19 25 05/25/2024 CMP (MALE ) BUN/creatini ne ratio 15.00 ratio Not Available [facility] 5 [facility] 1, [place], [address], 05/25/2024 18:12:20 05/25/19 25 05/25/2024 CMP (MALE ) eGFR calculated 82.4 Not Available [facility] 5 [facility] 1, [place], [address], 05/25/2024 18:12:20 05/25/19 25 05/25/2024 CMP (MALE ) total protein 8.0 g/dL 6.0-8. 5 Not Available [facility] [address] [facility] 1, [place], [address], 05/25/2024 18:12:20 05/25/19 25 05/25/2024 CMP (MALE ) total bilirubin 0.5 mg/dL 0.2-1. 3 Not Available [facility] [address] [facility] 1, [place], [address], 05/25/2024 18:12:20 05/25/19 25 05/25/2024 CMP (MALE ) albumin 4.9 g/dL 3.5-5. 5 Not Available [facility] [address] [facility] 1, [place], [address], 05/25/2024 18:12:20 05/25/19 25 05/25/2024 CMP (MALE ) globulin 3.1 calc Not Available [facility] [address] [facility] 1, [place], [address], 05/25/2024 18:12:20 05/25/19 25 05/25/2024 CMP (MALE ) AST (SGOT) 27.0 U/L 0.0-46 .0 Not Available [facility] [address] [facility] 1, [place], [address], 05/25/2024 18:12:20 05/25/19 25 05/25/2024 CMP (MALE ) altv (SGPT) 39.0 U/L 13.0-6 9.0 normal Not Available [facility] [address] [facility] 1, [place], [address], 05/25/2024 18:12:20 05/25/19 25 05/25/2024 CMP (MALE ) A/G ratio 1.6 ratio Not Available [facility] [address] [facility] 1, [place], [address], 05/25/2024 18:12:20 05/25/19 25 05/25/2024 CMP (MALE ) ALP phos 62.0 U/L 30.0-1 40.0 normal Not Available [facility] [address] [facility] 1, [place], [address], 05/25/2024 18:12:20 05/25/19 25 05/25/2024 CMP (MALE ) calcium 9.5 mg/dL 8.4-10 .5 Not Available [facility] [address] [facility] 1, [place], [address], 05/25/2024 18:12:20 05/25/19 25 05/25/2024 CMP (MALE ) sodium 138.0 mmol/ L 136.0- 145.0 Not Available [facility] [address] [facility] 1, [place], [address], 05/25/2024 18:12:20 05/25/19 25 05/25/2024 CMP (MALE ) potassium 3.9 mmol/ L 3.5-5. 1 Not Available [facility] [address] [facility] 1, [place], [address], 05/25/2024 18:12:20 05/25/19 25 05/25/2024 CMP (MALE ) chloride 109.0 mmol/ L 98.0-1 10.0 normal Not Available [facility] [address] [facility] 1, [place], [address], 05/25/2024 18:12:20 05/25/19 25 05/25/2024 CMP (MALE ) C02 27.0 mmol/ L 22.0-3 1.0 Not Available [facility] [address] [facility] 1, [place], [address], 05/25/2024 18:12:20 05/25/19 25 05/25/2024 CMP (MALE ) anion gap 2.0 calc Not Available [facility] [address] [facility] 1, [place], [address], 05/25/2024 18:12:20 05/25/19 25 05/25/2024 CMP (MALE ) osmolality 285.0 calc Not Available [facility] [address] [facility] 1, [place], [address], 05/25/2024 18:12:20 05/25/19 25 05/25/2024 TSH TSH 1.38 uIU/m L 0.49-3 .82 Not Available [facility] [address] [facility] 1, [place], [address], 05/25/2024 18:17:00 05/25/19 25 05/27/2024 VITAM IN D,25- OH,TO TAMY,I A vitamin D,25-oh,tota l,ia 44 NG/mL 30-100 normal Vitam in D Statu s 25-OH Vitam in D: Defic iency : <20 ng/mL Insuf ficie ncy: 20 - 29 ng/mL Optim al: > or = 30 ng/mL For 25-OH Vitam in D testi ng on patie nts on D2-mai pplem entat ion and patie nts for whom quant itati on of D2 and D3 fract ions is requi red, the [facility] Ass[facility] eD(TM ) 25-OH VIT D, (D2,D 3), LC/MS /MS is recom janie d: order code 84579 (eros ents >2yrs ). See Note 1 Note 1 For addit ional infor roxanne mack refer to http: //phyllis montezQue stDia gnost ics.c om/fa q/FAQ 199 (This link is being provi ded for infor kylee quesada/ charles iqbal purpo ses only. ) Not Available [employer] [facility] [address], [place], [address], 05/27/2024 05:39:47 11/15/19 25 11/14/2024 COLOG UARD cologuard result reportable NEGATI VE negati ve normal The Colog uard (TM) test was perfo rmed on this speci men. NEGAT DEVI TEST RESUL T. A negat devi Colog uard resul t indic ates a low likel ihood that a color ectal cance r (CRC) or advan zahra adeno ma (juan omato us polyp s with more advan zahra pre-m align ant featu res) is prese nt. The [facility] e that a perso n with a negat devi Colog uard test has a color ectal cance r is less than 1 in 1500 (nega tive predi ctive value >99.9 %) or has an advan zahra adeno ma is less than 5.3% (nega tive predi ctive value 94.7% ). These data are based on a prosp ectiv e cross -sect ional study of ,00 0 indiv idual s at [facility] risk for color ectal cance r who were scree gwen with both Colog uard and colon oscop y. (Milton Riuz et al, N Engl J Med 2014; 370(1 4):12 86-12 97) The horacio l value (refe rence range ) for this assay is negat devi. COLOG UARD RE-SC REENI NG RECOM MENDA TION: Perio dic color ectal cance r scree marli is an impor tant part of preve ntive healt hcare for asymp tomat ic indiv idual s at [facility] risk for color ectal cance r. Follo wing a negat devi Colog uard resul t, the Ameri can Cance r Socie ty and U.S. Multi -Soci ety Task Force scree marli guide lines recom mend a Colog uard re-sc reeni ng inter janessa of 3 years . Refer ences : Ameri can Cance r Socie ty Guide line for Color ectal Cance r Scree marli: https ://jaime w.can cer.o rg/ca ncer/ colon -rect al-ca ncer/ detec tion- diagn osis- stagi ng/ac s-rec ommen datio ns.ht ml.; Josef CASTILLO, Joe WEN, Lois DelgadoK, Color ectal Cance r Scree marli: Recom menda tions for Physi cians and Patie nts from the U.S. Multi -Soci ety Task Force on Color ectal Cance r Scree Shikha calles rolog y 2017; 112:1 016-1 030. TEST DESCR IPTIO N: [place] site algor ithmi c rahul sis of stool DNA-b iomar kers with hemog lobin immun oassa y. Quant itati ve value s of indiv idual bioma rkers are not repor table and are not assoc iated with indiv idual bioma rker resul t refer ence range s. Colog uard is inten ded for color ectal cance r scree marli of adult s of eithe r sex, 45 years or older , who are at [facility] for color ectal cance r (CRC) . Colog uard has been appro bruna for use by the U.S. FDA. The perfo rmanc e of Colog uard was estab lishe d in a cross secti onal study of [facility] adult s aged 50-84 . Colog uard perfo rmanc e in patie nts ages 45 to 49 years was estim ated by sub-g roup rahul sis of near- age group s. Colon oscop ies perfo rmed for a posit devi resul t may find as the most clini jason signi adal napoles n: color ectal cance r [4.0% ], advan zahra adeno ma (incl uding sessi le renetta isrrael polyp s great er than or equal to 1cm diame ter) [20%] or non- advan zahra adeno ma [31%] ; or no color ectal neopl caty [45%] . These estim ates are deriv ed from a prosp ectiv e cross -sect ional scree marli study of 10,00 0 indiv idual s at [facility] risk for color ectal cance r who were scree gwen with both Colog uard and colon oscop y. (Milton Connor. et al, N Engl J Med 2014; 370(1 4):12 86-12 97.) Colog uard may produ ce a false negat devi or false posit devi resul t (no color ectal cance r or preca ncero us polyp prese nt at colon oscop y follo w up). A negat devi Colog uard test resul t does not guara ntee the absen ce of CRC or advan zahra adeno ma (pre- cance r). The curre nt Colog uard scree marli inter janessa is every 3 years . (Amer ican Cance r Socie ty and U.S. Multi -Soci ety Task Force ). Colog uard perfo rmanc e data in a 10,00 0 patie nt pivot al study using colon oscop y as the refer ence metho d can be acces sed at the follo wing locat ion: www.e xactl abs.c om/re frank . Addit ional descr iptio n of the Colog uard test proce ss, warni ngs and preca ution s can be found at www.c darylu malaika.c om. Not Available [facility] [address], [place], [address], 11/20/2024 23:35:47 08/26/19 25 08/24/2024 US, pelvi s, compl ete No observ ation record ed. [email or web address] [facility] [address] [place], [address], 08/25/2024 12:11:56 Result Notes None recorded. Problems Name Problem SNOMED Code Status Onset Date Resolution Date Notes Provider Name and Address Organization Details Recorded Time Essential hypertens ion 12271125 Active 2022 FELIX Caputo [facility] 15:48:16 Chronic insomnia 758176842 Active 2022 FELIX Caputo [facility] 5 15:48:16 Depressiv e disorder 15171214 Active 2023 ADY hebert [facility] 5 15:48:16 Diverticu litis of colon 480488703 Completed 202409/23/2024 ADY hebert [facility] 5 17:06:43 Mass of uterus 370131856369 109 Active 2024 TALYA VALDOVINOS anup [facility] 5 09:49:27 Gastroeso phageal reflux disease 831416779 Active 2024 Naif Solano MD [address] [place], [address], [facility] 5 17:51:25 Problem Notes None recorded. Procedures Surgical History Date Name Laterality Status Provider Name and Address Organization Details Recorded Time 11/18/19 colonoscopy completed HAIR HASKINS [address] [place], [address], [facility] 11/23/2024 12:19:23 repair of pulmonary artery [facility] 06/19/2024 11:40:10 cholecystectomy completed [facility] 06/19/2024 11:40:26 appendectomy completed [facility] 06/19/2024 11:40:38 procedure on hip completed [facility] 06/19/2024 11:40:59 Imaging Results None recorded. Procedure Notes None recorded. Medical Equipment None Reported. Allergies No known drug allergies Medications Name Sig Start Date Stop Date Status Note LastModified by Organization Details LastModified Time trazodone 50 mg tablet TAKE 1 TABLET BY MOUTH EVERYDAY AT BEDTIME 05/21 completed Not Available Not Available Not Available hydrocodo ne 5 mg-acetam inophen 325 mg tablet TAKE 1 TABLET BY MOUTH EVERY 6 HOURS NEEDED FOR PAIN 07/27 completed Not Available Not Available Not Available fluconazo le 200 mg tablet TAKE 1 TABLET BY MOUTH EVERY DAY FOR 7 DAYS 06/19 completed Not Available Not Available Not Available metronida zole 500 mg tablet TAKE 1 TABLET BY MOUTH EVERY 8 HOURS FOR 7 DAYS 09/23 completed Not Available Not Available Not Available ciproflox acin 500 mg tablet TAKE 1 TABLET BY MOUTH TWICE DAILY 07/27 completed Not Available Not Available Not Available citalopra m 20 mg tablet TAKE 1 TABLET BY MOUTH EVERY DAY 2024 active Not Available Not Available Not Avai lable trazodone 100 mg tablet TAKE 1 TABLET BY MOUTH EVERYDAY AT BEDTIME 2024 active Not Available Not Available Not Avai lable erythromy sebas 5 mg/gram (0.5 %) eye ointment 05/21 completed Not Available Not Available Not Available trazodone 300 mg tablet Take 1 tablet twice a day by oral route. 05/21 completed Not Available Not Available Not Available omeprazol e 20 mg capsule,d elayed release Take 1 capsule every day by oral route. active Not Available Not Available No t Available lisinopri l 20 mg-hydroc hlorothia zide 25 mg tablet TAKE 1 TABLET BY MOUTH EVERY DAY active Not Available Not Available No t Available lisinopri l 10 mg-hydroc hlorothia zide 12.5 mg tablet TAKE 1 TABLET BY MOUTH EVERY DAY 06/19 completed Not Available Not Available Not Available ondansetr on 4 mg disintegr ating tablet DISSOLVE 1 TABLET IN MOUTH EVERY 6 HOURS NEEDED FOR NAUSEA AND VOMITING 07/27 completed Not Available Not Available Not Available cefdinir 300 mg capsule TAKE 1 CAPSULE BY MOUTH EVERY 12 HOURS FOR 7 DAYS 07/18 completed Not Available Not Available Not Available ciclopiro x 0.77 % topical cream APPLY TO AFFECTED AREA TWICE A DAY IN THE MORNING AND IN THE EVENING active Not Available Not Available No t Available lisinopri l-hydroch lorothiaz kristopher daily 05/21 completed Recorded 03/12/20 4:40PM by Naif Solano MD, Office Visit; Refill Quantity : 100; Tablet; Not Available Not Available Not Available Trazodone at bedtime 05/21 completed DX Code F32.9 New dosing.; Recorded 03/12/20 4:39PM by Naif Solano MD, Office Visit; Refill Quantity : 90; Tablet; Not Available Not Available Not Available Trintelli x 20 mg tablet TAKE 1 TABLET BY MOUTH EVERY DAY 05/21 completed Not Available Not Available Not Available Vitals Date Recorded Body height Body mass index (BMI) Body weight Oxygen saturation Oxygen saturation in Arterial blood by Pulse oximetry Heart rate Respiratory rate Body temperature Systolic And Diastolic Provider Name and Address Organization Details Last Updated DateTime 5 160.02 cm 34.3 kg/m2 53332.4 3 g 97 % 97 % 81 /min 18 /min 98.4 [degF] 110/80 mm[Hg] Esther Dunaway [facility] 5 11:45:15 Date Recorded Body height Body mass index (BMI) Body weight Oxygen saturation Oxygen saturation in Arterial blood by Pulse oximetry Heart rate Body temperature Systolic And Diastolic Provider Name and Address Organization Details Last Updated DateTime 160.02 cm 35.3 kg/m2 11414.8 8 g 99 % 99 % 86 /min 99.6 [degF] 105/74 mm[Hg] Ella Zhou [facility] 5 12:06:07 Date Recorded Body height Body mass index (BMI) Body weight Heart rate Systolic And Diastolic Provider Name and Address Organization Details Last Updated DateTime 07/27/2024 160.02 cm 34.4 kg/m2 73017.92 g 74 /min 131/100 mm[Hg] ADY MENG [facility] 5 15:41:53 Date Recorded Body height Body mass index (BMI) Body weight Heart rate Systolic And Diastolic Provider Name and Address Organization Details Last Updated DateTime 09/23/2024 160.02 cm 34.2 kg/m2 89313.33 g 70 /min 122/82 mm[Hg] ADY MENG [facility] 17:02:14 Social History Question Answer Notes LastModified by Organizat ion Details LastModified Time Tobacco Smoking Status Never Smoker ADY YUSRA hebert [facility] 09/11/2022 17:37:57 What Is Your Level Of Caffeine Consumption? Moderate [email or web address] Information not available 06/19/2024 What Was The Date Of Your Most Recent Tobacco Screening? 09/23/2024 Information not available 09/23/2024 Sex: Unknown Functional Status Question Answer Note LastModified by Organizat ion Details LastModified Time Do you use any illicit or recreational drugs? No [email or web address] Information not available 06/19/2024 Do you or have you ever used any other forms of tobacco or nicotine? No [email or web address] Information not available 06/19/2024 What is your level of alcohol consumption? None Information not available 09/11/2022 Do you or have you ever used any nicotine-free cigarettes, vape, or chewing tobacco? No [email or web address] Information not available 06/19/2024 Mental Status None recorded. Family History Relationship Description Onset Age of this Age Resolved Age Notes LastModified by Organization Details LastModified Time Father Diabetes mellitus [email or web address] Not available 2024 11:41:31 Father Heart disease Not available 2024 11:41:38 Father Cerebrovascu lar accident [email or web address] Not available 11:41:44 Mother Diabetes mellitus Not available 2024 11:41:31 Medical History No medical history recorded. Gynecological HistoryNo gynecological history recorded. Obstetrics History GPAL:G 0 P 0 0 0 0 Immunizations Vaccine Type Date Status Note Provider Nam e and Address Organization Details Recorded Time COVID-19, mRNA, LNP-S, PF, 30 mcg/0.3 mL dose 03/06/2021 completed Esther hebert [facility] 06/19/2024 11:38:31 Hep B, unspecified formulation 05/21/1997 completed Esther Dunaway null, [facility] 06/19/2024 11:38:31 Hep B, unspecified formulation 09/03/1997 completed Esther Dunaway null, [facility] 06/19/2024 11:38:31 Hep B, unspecified formulation 03/03/1997 completed Esther Dunaway null, [facility] 06/19/2024 11:38:31 Past Encounters Encounter ID Performer Location Encounter Start Date Encounter Closed Date Diagnosis/Indication Diagnosis SNOMED-CT Code Diagnosis ICD10 Code Diagnosis IMO Codes Diagnosis Note [id number] Naif Solano MD [facility] ([facility]) [address] [place] [phone] 09/11/2022 16:48:01 09/11/2022 18:51:34 Depressive disorder 30685319 F32.9 Essential hypertension 12155845 I10 [id number] Naif Solano MD [facility] ([facility]) [address] [place] [phone] 11/12/2022 16:32:27 11/12/2022 18:30:11 Depressive disorder 02022229 F32.9 Essential hypertension 14102151 I10 [id number] Naif Solano MD [facility]) [address] [place] [id number] 05/21/2023 16:32:30 05/21/2023 18:06:05 Essential hypertension 83934731 I10 Patient states BP at home 120's/80's . Continue to monitor. Chronic insomnia 7847090 04 F51.04 No changes. Depressive disorder 3548 9007 F32.9 stable at present. Plantar wa rt of right foot 7559400645 2434340 B07.0 will return in 6 weeks for possible refreeze of wart. [id number] Naif Solano MD [facility] ([facility]) [address] [place] [phone] 5 07/03/2023 16:24:54 07/03/2023 17:36:41 Depressive disorder 46887480 F32.9 stable at present. [employer]MLA [employer] filled out and faxed Essential hypertension 42134210 I10 Patient states diastolic BP has been up into 80's to low 90's. Chronic insomnia 0464720 04 F51.04 No changes. Plantar wa rt of right foot 6637309167 8531267 B07.0 Tinea corporis 26521808 B35.4 right abdomen. [id number] Naif Solano MD [facility] ([facility]) [address] [place] [address] 5 10/30/2023 16:27:59 10/30/2023 17:31:13 Depressive disorder 63848105 F32.9 Essential hypertension 99023816 I10 stable Chronic insomnia 9193503 04 F51.04 No changes. [id number] Naif Solano MD [facility] ([facility]) [address] [place] [address] 5 05/25/2024 16:14:05 05/27/2024 10:20:49 Depressive disorder 58502624 F32.9 Essential hypertension 92217699 I10 running higher. Chronic insomnia 6729260 04 F51.04 No changes. Tinea corporis 38193434 B35.4 recurrent/ chronic. I worry about sugar. [id number] HAIR ROBERTS [facility] ([facility]) [address] [place] [address] 5 06/19/2024 11:30:15 06/19/2024 16:21:46 Acute suppurative otitis media without spontaneous rupture of ear drum 03948240 H66.002 Increase po fluids. Rest. May use otc meds as needed for pain or fever. Return to clinic with any new or worsening symptoms. [id number] HAIR ROBERTS [facility] ([facility]) [address] [place] [address] 5 07/18/2024 11:29:32 07/20/2024 11:44:19 Abdominal pain 41903700 R10.9 Patient with tenderness and guarding with palpation in all quadrants. sent to ER for further evaluation . [id number] Naif Solano MD [facility] ([facility]) [address] [place] [address] 5 07/27/2024 15:11:38 07/30/2024 06:33:35 Diverticulitis of colon [id number] K57.32 resolving symptomati jason. Mass of uterus [id number] 1 [id number] N85.8 suspect fibroid. [id number] Naif Solano MD [facility] ([facility]) [address] [place] [phone] 08/24/2024 15:16:47 08/25/2024 12:12:53 [id number] Naif Solano MD [facility] ([facility]) [address] [place] [phone] 09/23/2024 16:27:16 09/23/2024 17:53:45 Depressive disorder [id number] F32.9 stable. Essential hypertension [id number] I10 improved. Chronic insomnia [id number] 04 F51.04 No changes. Gastroesop hageal reflux disease [id number] K21.9 [id number] Health Concerns Section Related Observation LastModified by Organization Detai ls LastModified Time None Recorded Concern Status LastModified by Organization Details LastModified Time None Recorded Advance Directives Directive None Recorded Payers Insurance Date Sequence Insurance Name Policy Number Policy Cornejo Covered Member ID Cornejo Member ID Guarantor Name 09/28/2024 1 [place] ([id number]) [id number] Arvin Cedillo [id number] Shelia Cedillo Notes Date Note Type Note Provider Name and Address Organization Details Recorded Time 06/19/2024 text/html ROS as noted in the HPI Pt presents for ear pain left worse than right She c/o left ear pain since Saturday and the right started yesterday. she c/o having sinus sx (cough/congestion) since . [facility] [address] [place] [address], [phone], [facility], [place] 06/19/2024 16:21:15 07/18/2024 text/html ROS as noted in the HPI walk inx 3 days lower abd cramps, fever, diarrhea. Patient also complains of back pain. Patient states that the fever started last night. HAIR ROBERTS [address] [place] [address], [phone], [facility], [place] 07/18/2024 15:03:24 07/27/2024 text/html She was diagnosed with Diverticulitis Naif Solano MD [address] [place] [address], [phone], [facility], [place] 07/27/2024 16:33:38 09/23/2024 text/html Anxiety/Depressi onRepo rted by PatientHPIFor associated symptoms, patient reportsanxietybut reportsdenies homicidal ideations,no significant weight gain,no significant weight loss,no visual/auditory hallucinations,no delusions,no shortness of breath, andmood good. For severity, patient reportsdenies suicidal ideations,able to maintain relationships,does not interfere with activities of daily living,symptoms improved, andstabilizing. For context, patient reportsno major life stressors. Hypertension IM/FMReported by PatientHPIFor quality, patient reportshere for check-up. For alleviating factors, patient reportsmedication. Naif Solano MD [address] [place], [phone], [facility], [place] 09/23/2024 17:52:09 OBGyn Episode No OBEpisode recorded.
--- OUTSIDE RECORDS SUMMARY | 2025-03-03 12:02 | XMS_ITS | Encounter Summary ---
Author Organization [facility] Address [address] [place] [address] Care Team Providers Care General Ii Farmworker Name Role Phone Unavailable Primary Care Provider Unavailabl e Encounter Details Date Type Department Care Team (Latest Contact Info) Description 05/27/1998 Outpatient Historical [facility] Rafybreanne Iggy Dom NO ADDRESS ON FILE Other general medical examination for administrative purposes (Primary Dx) Social History Tobacco Use Types Packs/Day Years Used Date Smoking Tobacco: Never Assessed Comments Unknown Sex and Gender Information Value Date Recorded Sex Assigned at Not on file Legal Sex Female 6:04 AM [employer]ON [employer] Gender Identity Not on file Sexual Orientation Not on file documented as of this encounter Plan of Treatment Not on file documented as of this encounter Visit Diagnoses Diagnosis Other general medical examination for administrative purposes- Primary documented in this encounter
--- NOTE | 2025-03-03 12:10 | P.PN_ITS ---
[employer] Subjective 2 Subjective: Interval history: c/o moderate incisional pain, relieved with pain medications tolerating PO well voiding, ambulating well Vitals/I&O/Wt Last Vital Signs Temp 98.2 F 03/03/25 09:03 Pulse 89 03/03/25 09:03 Resp 17 03/03/25 09:03 BP 137/96 03/03/25 09:03 Pulse Ox 97 03/03/25 09:03 O2 Del Method Room Air 03/03/25 09:03 03/02/25 03/03/25 03/03/25 22:59 06:59 14:59 Intake Total 825 / 3161 Output Total 850 / 2375 Balance - / 786 Weight last 48 hrs Weight 195 lb Physical Exam 2 Narrative: VS afebrile, normal General comfortable, awake, alert Lungs: clear Cor: RRR Abd: soft, nondistended, nontender Wound clean and dry Ext: normal Postop Hgb 10.2 Urinary Catheter Management: Combs: Cath Placed During This Visit: yes, but has since been removed by the nurse Reason for Continuing Indwelling Catheter: Decision to DC Catheter Urinary Catheter Date of Insertion: 03/02/25 Urinary Catheter Time of Insertion: 07:00 Date Urinary Catheter Removed: 03/02/25 Time Urinary Catheter Discontinued: 18:37 Data 03/03/25 06:05 A&P Assessment and plan 1. S/P hysterectomy: POD #1 total abdominal hysterectomy, bilateral salpingectomy, right ovarian cystectomy Doing well Plan to discharge to home today Return to ER if fever, chills, nausea, vomiting, severe pain, vaginal bleeding, swelling or pain in legs, chest pain, shortness of breath Return to see me in one week PDMP PDMP Reviewed: Last Reviewed 03/03/25 12:56 EDT by Huan Mejia MD Attestations 2 Medical Necessity Statement*: patient s/p hysterectomy, plan to discharge to home today Coding Level of Care Code Acute Code for Chg Fwd Diagnoses S/P hysterectomy Z90.710
--- NOTE | 2025-03-03 12:13 | PM.OBGYDC ---
Discharge Providers ANALYSIS DIRECTOR Date of Admission: 03/02/25 10:06 Date of Discharge: 03/03/25 Attending Provider at Admission: Huan Mejia MD Attending Provider at Discharge: Huan Mejia MD Consults: none Primary ANALYSIS DIRECTOR: Huan Mejia MD Primary Care Provider: Davon Solano MD Diagnoses at Discharge Discharge Diagnosis 1. S/P hysterectomy: Details from hospital stay: 44 y.o. with h/o menorrhagia and dysmenorrhea admitted for hysterectomy patient underwent total abdominal hysterectomy, bilateral salpingectomy, and right ovarian cystectomy patient did well postoperatively and was discharged to home on the first postoperative day Reason for Visit Reason for Visit: menometrorrhagia Brief History: 44 y.o. with h/o menorrhagia and dysmenorrhea admitted for hysterectomy Hospital Course Hospital Course 44 y.o. with h/o menorrhagia and dysmenorrhea admitted for hysterectomy patient underwent total abdominal hysterectomy, bilateral salpingectomy, and right ovarian cystectomy patient did well postoperatively and was discharged to home on the first postoperative day Physical Exam Narrative: VS afebrile, normal General comfortable, awake, alert Lungs: clear Cor: RRR Abd: soft, nondistended, nontender Wound clean and dry Ext: normal Postop Hgb 10.2 Urinary Catheter Management: Combs: Cath Placed During This Visit: yes, but has since been removed by the nurse Reason for Continuing Indwelling Catheter: Decision to DC Catheter Urinary Catheter Date of Insertion: 03/02/25 Urinary Catheter Time of Insertion: 07:00 Date Urinary Catheter Removed: 03/02/25 Time Urinary Catheter Discontinued: 18:37 Discharge Data Studies Completed and Pending Pending at discharge Category Date Time Status Pathology: Surgical [PTH] Routine Pth 03/02/25 08:41 Received Laboratory Results WBC 15.91 10^3/uL (3.29-11.43) H 03/03/25 06:05 RBC 3.22 10^6/uL (3.85-5.65) L 03/03/25 06:05 Hgb 10.20 g/dL (11.27-16.99) L 03/03/25 06:05 Hct 29.9 % (36-47) L 03/03/25 06:05 MCV 92.9 fl (85-98) 03/03/25 06:05 MCH 31.7 pg (27-33) 03/03/25 06:05 MCHC 34.1 g/dL (30-55) 03/03/25 06:05 RDW 12.9 % (12.1-15.1) 03/03/25 06:05 Plt Count 225 10^3/cmm (157-399) 03/03/25 06:05 MPV 11.5 fL (7.4-10.4) H 03/03/25 06:05 Urine HCG, Qual Negative (Negative) 03/02/25 05:57 Blood Type O Positive 03/02/25 06:16 Rho(D) Type Rh positive 03/02/25 06:16 Antibody Screen Negative 03/02/25 06:16 Procedures Performed total abdominal hysterectomy, bilateral salpingectomy, right ovarian cystectomy Vitals Last Vital Signs Temp 98.2 F 03/03/25 09:03 Pulse 89 03/03/25 09:03 Resp 17 03/03/25 09:03 BP 137/96 03/03/25 09:03 Pulse Ox 97 03/03/25 09:03 O2 Del Method Room Air 03/03/25 09:03 Results Labs OB ([facility]): Blood Type O Positive 03/02/25 Antibody Screen Negative 03/02/25 Hct, (36-47) 29.9 % L Today Hgb, (11.27-16.99) 10.20 g/dL L Today Rho(D) Type Rh positive 03/02/25 Plt Count, (157-399) 225 10^3/cmm Today HCG, Qual, (Negative) Negative 07/18/24 Discharge Plan Discharge Patient Disposition: Home Condition: Stable Prescriptions: New oxycodone-acetaminophen [Percocet] 5-325 mg tablet 1 tab PO Q6H PRN (Reason: pain) Qty: 20 0RF Continued lisinopril-hydrochlorothiazide 10-12.5 mg tablet 1 tab PO DAILY trazodone 50 mg tablet 50 mg PO DAILY citalopram [Celexa] 20 mg tablet 20 mg PO DAILY Discharge Order = DC NOW: Discharge Order (Routine); Ordered 03/03/25 Ordered By: Huan Mejia Referrals: Huan Mejia MD [Physician, ANALYSIS DIRECTOR] - 03/10/25 9:00 am Discharge Diet: Usual diet Discharge Activity: Increase activity as tolerated Patient Instructions: Acute Wound Care (DC), Hysterectomy (DC), Opioid Safety, Post Anesthesia Care, Patient Portal & Randi Instructions Discharge Attestations ANALYSIS DIRECTOR Time Spent in Discharge Care*: less than 30 min Coding Level of Care Code Acute Code for Chg Fwd Diagnoses S/P hysterectomy Z90.710
[2025-03-03 13:25] VITALS: BP 107/73; PULSE 83; RESP 17; TEMP 37; O2SAT 97
== END 2025-03-03 13:25 | disposition home or self-care (01) | DRG 743 ==
LOC: OBGYN 03-03 11:37
PROVIDERS: Anesthesiology; Admitting Provider Obstetrics & Gynecology; PCP Family Medicine; Visit Provider Obstetrics & Gynecology
PROC: 0UT90ZZ Resection of Uterus, Open Approach (ICD-10-PCS; CPT 58150; principal; 2025-03-02 07:00)
DX: N92.1 Excessive and frequent menstruation with irregular cycle (principal); N94.6 Dysmenorrhea, unspecified; D25.9 Leiomyoma of uterus, unspecified; N83.201 Unspecified ovarian cyst, right side
CPT/HCPCS: 36415; 51702; 81025; 85027; 86850; 86900; 88302; 88307; A4216; J0131; J0169; J0461; J0666; J0690; J1100; J1171; J1200; J1885; J2250; J2270; J2371; J2405; J2704; J3010; J3475; J3490; J7030; J7121; J9999; P9045